=== PATIENT | male | born 1975 | race African-American/Black ===

== ENCOUNTER 2022-05-26 07:54 | Emergency (ER) | payer MEDICAID ==
[2022-05-26] MEDS ORDERED: Lidocaine 5% 700 MG Patch TRDERM ONE (08:53)
[2022-05-26] MEDS ORDERED: Take Home: predniSONE 20 MG, 2 Tab Pack PO ONE (09:00)
== END 2022-05-26 09:29 | disposition home or self-care (01) ==
LOC: CC.ED 07:54
DX: M94.0 Chondrocostal junction syndrome [Tietze] (principal); F17.210 Nicotine dependence, cigarettes, uncomplicated; Z88.0 Allergy status to penicillin; Z79.899 Other long term (current) drug therapy
CPT/HCPCS: 36415; 71046; 80053; 83735; 84484; 85025; 93005; 93010; 99284; 99285; A9270-GY; J7512